=== PATIENT | female | born 1960 | race Caucasian/White ===

== ENCOUNTER → 2023-12-08 16:36 | Outpatient (REF) | payer BC, SELFPAY | LOC: WDC 16:36 | PROVIDERS: ATTENDING PHYSICIAN Nurse Practitioner Adult Health | DX: Z12.31 Encounter for screening mammogram for malignant neoplasm of breast (principal) | CPT/HCPCS: 77063; 77067 ==

== ENCOUNTER → 2024-04-05 17:23 | Outpatient (REF) | payer BC, SELFPAY | LOC: RAD 17:23 | PROVIDERS: ATTENDING PHYSICIAN Nurse Practitioner Adult Health | DX: M25.531 Pain in right wrist (principal); Z91.81 History of falling | CPT/HCPCS: 73110 ==

== ENCOUNTER → 2024-12-08 16:15 | Outpatient (REF) | payer BC, SELFPAY | LOC: WDC 16:15 | PROVIDERS: ATTENDING PHYSICIAN Nurse Practitioner Adult Health | DX: Z12.31 Encounter for screening mammogram for malignant neoplasm of breast (principal) | CPT/HCPCS: 77063; 77067 ==